=== PATIENT | male | born 1975 | race Caucasian/White ===

== ENCOUNTER 2020-01-31 12:12 | Inpatient (IN) | payer SELFPAY ==
[2020-01-31] MEDS ORDERED: Calcium Carbonate 500 MG ChewTAB PO PRN (14:11)
[2020-01-31] MEDS ORDERED: Ondansetron ODT 4 MG TAB PO PRN (14:11)
[2020-01-31] MEDS ORDERED: Acetaminophen 325 MG TAB PO PRN (14:11)
[2020-01-31] MEDS ORDERED: Ondansetron PF 4 MG/2 ML Vial IVP PRN (14:11)
[2020-01-31] MEDS ORDERED: Sodium Chloride 0.9% 1,000 ML IV SCH (14:15)
[2020-01-31] MEDS ORDERED: cloNIDine 0.1 MG TAB PO PRN (14:17)
[2020-01-31] MEDS ORDERED: Lorazepam 1 MG TAB PO PRN (14:18)
[2020-01-31] MEDS ORDERED: Thiamine 100 MG TAB PO SCH (14:30)
[2020-01-31] MEDS ORDERED: Folic Acid 1 MG TAB PO SCH (14:30)
[2020-01-31] MEDS ORDERED: Multivit, Therapeutic 1 TAB PO SCH (14:30)
[2020-01-31] MEDS: NS 0.9% w/ 20 MEQ KCL 1,000 ML/1,000 ML BAG IV SCH ×2 (16:24→20:14)
[2020-01-31] MEDS: Potassium Chloride 20 MEQ TAB PO SCH (16:24)
--- NOTE | 2020-01-31 17:24 | HP ---
PRIMARY CARE PHYSICIAN: [facility]. CHIEF COMPLAINT: Altered mentation. HISTORY OF PRESENT ILLNESS: The patient is a 44-year-old male with schizophrenia and suicidal attempt in the past, was brought in to [facility] with altered mentation. He was found to have altered mentation behind [employer]. The patient also has a history of polysubstance abuse including methamphetamine. He has been complaining of generalized weakness along with fatigue. No fever, chills, or sick contacts reported. He complains of frequent urination recently. He is currently homeless. He has a history of alcohol abuse as well; however, denies any history of alcohol withdrawals. He reported suicidal ideation without a plan in the emergency room. He also reported that he had dark stools; however, denies any hematemesis. In the emergency room, his workup was consistent with rhabdomyolysis. His urine drug screen was positive for methamphetamine. He received IV fluids and was transferred to this facility for hospital admission. His potassium was 2.9. PAST MEDICAL HISTORY: 1. Polysubstance abuse. 2. Schizophrenia. 3. History of suicidal attempt. 4. Depression and anxiety. 5. Chronic hepatitis C. ALLERGIES: NO KNOWN DRUG ALLERGIES. PAST SURGICAL HISTORY: Reviewed with the patient and none. SOCIAL HISTORY: As discussed above. He smokes up to 2 packs a day. FAMILY HISTORY: Negative for heart disease. REVIEW OF SYSTEMS: The patient denies any recent immobilization, travel, or sick contacts. No chest pain, palpitations, or syncope reported. All other review of systems were reviewed and were found negative. PHYSICAL EXAMINATION: VITAL SIGNS: In the emergency room showed temperature 97.6, respirations of 16, pulse rate of 76 with a blood pressure of 112/72, with O2 saturation 100% on room air. GENERAL: A 44-year-old male, in no apparent distress. Mentation has significantly improved. HEENT: Head, atraumatic and normocephalic. Sclerae anicteric. Dry mucous membrane. No oral lesion. NECK: Supple. No JVD appreciated. No carotid bruit. LUNGS: Clear to auscultation bilaterally. No wheezing, rales, or rhonchi. HEART: S1 and S2 present. Regular rate and rhythm. No rubs or gallops. ABDOMEN: Soft, nontender. Bowel sounds present. EXTREMITIES: No edema or calf tenderness. NEUROLOGIC: Grossly nonfocal. Moves all 4 extremities. Power was 5/5 in all extremities. PSYCHIATRIC: Alert, awake, oriented x3. Normal affect. SKIN: Warm and dry. LYMPH NODES: No palpable lymph nodes in the neck. PERIPHERAL VASCULAR: Radial pulses palpable bilaterally. MUSCULOSKELETAL: No joint swelling tenderness. LABORATORY FINDINGS: CBC showed WBC of 10.1 with hemoglobin 13.3, platelet count of 278. Sodium 135 with potassium 2.9, BUN 22, creatinine 0.91. Total bilirubin 1.7 with AST of 265, ALT of 117, alkaline phosphatase was normal. CK was 10,669. Urine drug screen was positive for amphetamine and methamphetamine. Salicylate, acetaminophen, and alcohol level were negative. Urinalysis was negative for RBC, WBC. Stool for occult blood was positive. IMPRESSION: 1. Toxic metabolic encephalopathy secondary to polysubstance abuse. 2. Rhabdomyolysis secondary to above. 3. Ongoing tobacco abuse. 4. Anxiety, depression, schizophrenia with suicidal ideation. 5. Chronic hepatitis C with abnormal LFTs. 6. Positive Hemoccult stool in the emergency room. 7. Hypokalemia. PLAN: The patient will be monitored on the medical floor. Sitter will be arranged. We will start him on aggressive IV hydration to prevent renal damage. We will replace potassium. We will start him on IV Protonix. Monitor H and H closely. We will type and screen in a.m. We will consult Gastroenterology if there is any concern for GI bleeding. We will monitor for alcohol withdrawal. Recheck CK in a.m. We will check coagulation profile in a.m. We will type and screen as well. Recheck LFTs in a.m. Job ID: [id number]
[2020-01-31] MEDS: Pantoprazole 40 MG VIAL IVP SCH (20:13)
[2020-01-31] MEDS ORDERED: Famotidine 20 MG TAB PO SCH (21:00)
[2020-02-01] MEDS: NS 0.9% w/ 20 MEQ KCL 1,000 ML/1,000 ML BAG IV SCH ×2 (00:41→02:20)
[2020-02-01] MEDS: Sodium Chloride 0.9% 1,000 ML IV SCH ×4 (06:16→21:48)
[2020-02-01 06:40] LABS: #Eosinphils 0.1 thou/uL (0.0-0.7); #Monocytes 0.6 thou/uL (0.11-0.59); #Neutrophils 3.4 thou/uL (1.40-6.50); %Basophils 0.7 % (0.0-1.0); %Eosinophils 1.6 % (0.0-10.0); %Monocytes 9.3 % (0.0-10.0); %Neutrophils 55.4 % (42.0-75.0); Hemoglobin 11.3 g/dL (14.0-18.0); Mean Corpuscular HGB CONC 33.8 g/dL (32.0-36.0); Mean Corpuscular Hemoglobin 33.1 pg (27.0-31.0); Mean Corpuscular Volume 97.9 fL (78.0-98.0); Mean Platelet Volume 7.1 fL (7.4-10.4); Platelet Count 220 thou/uL (130-400); RBC Distribution Width 11.9 % (11.5-14.5); Red Blood Cell (RBC) Count 3.42 mill/uL (4.70-6.10); White Blood Cell (WBC) Count 6.1 thou/uL (4.8-10.8)
[2020-02-01 06:46] LABS: PTT 26.5 sec (22.9-36.1); Prothrombin Time 13.2 sec (12.0-14.7)
[2020-02-01 07:05] LABS: ALT (SGPT) 77 U/L (8-55); AST (SGOT) 161 U/L (5-34); Albumin 2.8 g/dL (3.5-5.0); Alkaline Phosphatase 65 U/L (40-110); Anion Gap 8 mmol/L (10-20); BUN (Urea Nitrogen) 14 mg/dL (8.9-20.6); Bilirubin, Total 0.4 mg/dL (0.2-1.2); Calc. Creatinine Clearance 128 mL/min (70-130); Calcium 7.7 mg/dL (7.8-10.44); Carbon Dioxide 23 mmol/L (22-29); Chloride 114 mmol/L (98-107); Estimated GFR-MDRD Greater than 90; Globulin 2.2 g/dL (2.4-3.5); Glucose 102 mg/dL (70-105); Magnesium 1.7 mg/dL (1.6-2.6); Potassium 3.9 mmol/L (3.5-5.1); Sodium 141 mmol/L (136-145)
[2020-02-01 07:18] LABS: CK (CPK) 6215 U/L (30-200)
[2020-02-01] MEDS: Cyanocobalamin (Vitamin B-12) 1,000 MCG TAB PO SCH (08:23)
[2020-02-01] MEDS: Folic Acid 1 MG TAB PO SCH (08:23)
[2020-02-01] MEDS: Potassium Chloride 20 MEQ TAB PO SCH (08:23)
[2020-02-01] MEDS: Multivit, Therapeutic 1 TAB PO SCH (08:23)
[2020-02-01] MEDS: Pantoprazole 40 MG VIAL IVP SCH ×2 (08:23→20:17)
[2020-02-01] MEDS: Thiamine 100 MG TAB PO SCH (08:23)
[2020-02-01] MEDS ORDERED: Enoxaparin Sodium 40 MG/0.4 ML SYRINGE SC SCH (09:00)
--- NOTE | 2020-02-01 18:24 | PDOC.HOSPP ---
- Subjective Encounter Date: 02/01/20 Encounter Time: : Subjective: Pt seen for followup re: rhabdomyolysis. Denies any complaints. - Objective Vital Signs & Weight: Vital Signs (12 hours) Temp Pulse Resp BP Pulse Ox 02/01/20 15:23 97.9 F 62 16 108/56 L 97 02/01/20 12:00 97.2 F L 65 16 110/62 97 02/01/20 10:00 97 02/01/20 08:00 97 02/01/20 07:29 97.8 F 52 L 16 102/65 97 Weight Weight 165 lb 7 oz I&O: 01/31/20 02/01/20 02/02/20 06:59 06:59 06:59 Intake Total 4620 Output Total 400 Balance 4220 Result Diagrams: 02/01/20 06:11 02/01/20 06:11 Additional Labs: Labs and MARs reviewed by al Hospitalist ROS - Review of Systems Constitutional: denies: fever, chills, sweats, weakness, malaise Respiratory: denies: cough, shortness of breath, SOB with excertion, pleuritic pain, wheezing Cardiovascular: denies: chest pain, palpitations, orthopnea, paroxysmal noc. dyspnea, edema, light headedness Gastrointestinal: denies: nausea, vomiting, abdominal pain, diarrhea, constipation, melena, hematochezia Genitourinary: denies: dysuria, frequency, incontinence, hematuria, retention Musculoskeletal: denies: neck pain, shoulder pain, arm pain, back pain, hand pain, leg pain, foot pain - Medication Medications: Active Medications Generic Name Dose Route Start Last Admin Trade Name Rahul PRN Reason Stop Dose Admin Cyanocobalamin 1,000 mcg 02/01/20 09:00 02/01/20 08:23 Vitamin B-12 PO 1,000 mcg DAILY LORELEI Administration Folic Acid 1 mg 02/01/20 09:00 02/01/20 08:23 Folvite PO 1 mg DAILY LORELEI Administration Sodium Chloride 1,000 mls @ 200 mls/hr 02/01/20 05:30 02/01/20 14:44 Normal Saline 0.9% IV 1,000 mls .Q5H LORELEI Administration Multivitamins 1 tab 02/01/20 09:00 02/01/20 08:23 Theragran PO 1 tab DAILY LORELEI Administration Pantoprazole Sodium 40 mg 01/31/20 21:00 02/01/20 08:23 Protonix IVP 40 mg Q12HR LORELEI Administration Thiamine HCl 100 mg 02/01/20 09:00 02/01/20 08:23 Thiamine PO 100 mg DAILY LORELEI Administration - Exam General Appearance: awake alert Eye: anicteric sclera ENT: normocephalic atraumatic, no oropharyngeal lesions Neck: supple, symmetric, no JVD, no thyromegaly, no lymphadenopathy Heart: RRR, no gallops, no rubs, normal peripheral pulses Respiratory: CTAB, no wheezes, no rales, no ronchi, normal chest expansion Gastrointestinal: soft, non-tender, non-distended, normal bowel sounds Extremities: no cyanosis Musculoskeletal: no muscle wasting Psychiatric: normal affect, normal behavior, oriented to place, oriented to time Hosp A/P (1) Rhabdomyolysis Code(s): M62.82 - RHABDOMYOLYSIS Status: Acute (2) Transaminitis Code(s): R74.0 - NONSPEC ELEV OF LEVELS OF TRANSAMNS & LACTIC ACID DEHYDRGNSE Status: Acute (3) Acute metabolic encephalopathy Code(s): G93.41 - METABOLIC ENCEPHALOPATHY Status: Acute (4) Methamphetamine use Code(s): F15.10 - OTHER STIMULANT ABUSE, UNCOMPLICATED Status: Acute - Plan Continue IV fluids, trend CK. Isolated transaminitis likely due to rhabdomyolysis. Acute metaboilic encephalopathy improving, likely due to methamphetamine use - pt counseled re; cessation of recreational drug use. Sitter due to suicidal ideation; pt will need MHMR when medically cleared.
[2020-02-02] MEDS: Sodium Chloride 0.9% 1,000 ML IV SCH ×4 (00:51→17:14)
[2020-02-02 05:43] LABS: #Eosinphils 0.1 thou/uL (0.0-0.7); #Lymphocytes 2.6 thou/uL (1.20-3.40); #Monocytes 0.6 thou/uL (0.11-0.59); #Neutrophils 3.1 thou/uL (1.40-6.50); %Basophils 0.6 % (0.0-1.0); %Eosinophils 2.1 % (0.0-10.0); %Lymphocytes 39.9 % (21.0-51.0); %Monocytes 9.1 % (0.0-10.0); %Neutrophils 48.3 % (42.0-75.0); Hemoglobin 11.2 g/dL (14.0-18.0); Mean Corpuscular HGB CONC 33.7 g/dL (32.0-36.0); Mean Corpuscular Hemoglobin 33.1 pg (27.0-31.0); Mean Corpuscular Volume 98.4 fL (78.0-98.0); Mean Platelet Volume 6.9 fL (7.4-10.4); Platelet Count 246 thou/uL (130-400); RBC Distribution Width 11.7 % (11.5-14.5); Red Blood Cell (RBC) Count 3.38 mill/uL (4.70-6.10); White Blood Cell (WBC) Count 6.5 thou/uL (4.8-10.8)
[2020-02-02 06:08] LABS: ALT (SGPT) 73 U/L (8-55); AST (SGOT) 122 U/L (5-34); Albumin 2.7 g/dL (3.5-5.0); Alkaline Phosphatase 64 U/L (40-110); Anion Gap 9 mmol/L (10-20); BUN (Urea Nitrogen) 13 mg/dL (8.9-20.6); Bilirubin, Total Less than 0.2 mg/dL (0.2-1.2); Calc. Creatinine Clearance 123 mL/min (70-130); Calcium 7.6 mg/dL (7.8-10.44); Carbon Dioxide 23 mmol/L (22-29); Chloride 111 mmol/L (98-107); Estimated GFR-MDRD Greater than 90; Globulin 2.3 g/dL (2.4-3.5); Glucose 100 mg/dL (70-105); Magnesium 1.6 mg/dL (1.6-2.6); Potassium 3.7 mmol/L (3.5-5.1); Sodium 139 mmol/L (136-145)
[2020-02-02 06:18] LABS: CK (CPK) 4221 U/L (30-200)
[2020-02-02] MEDS: Folic Acid 1 MG TAB PO SCH (08:29)
[2020-02-02] MEDS: Multivit, Therapeutic 1 TAB PO SCH (08:29)
[2020-02-02] MEDS: Thiamine 100 MG TAB PO SCH (08:29)
[2020-02-02] MEDS: Cyanocobalamin (Vitamin B-12) 1,000 MCG TAB PO SCH (08:29)
[2020-02-02] MEDS: Pantoprazole 40 MG VIAL IVP SCH ×2 (08:29→21:04)
--- NOTE | 2020-02-02 18:07 | PDOC.HOSPP ---
- Subjective Encounter Date: 02/02/20 Encounter Time: 08:00 Subjective: Pt seen for followup re: rhabdomyolysis. Pt states he feels better today. - Objective Vital Signs & Weight: Vital Signs (12 hours) Temp Pulse Resp BP BP Pulse Ox 02/02/20 08:00 115/52 L 97 02/02/20 07:30 98.0 F 51 L 16 115/52 L 97 Weight Weight 165 lb 7 oz I&O: 02/01/20 02/02/20 02/03/20 06:59 06:59 06:59 Intake Total 4620 3160 Output Total 400 Balance 4220 3160 Result Diagrams: 02/02/20 05:30 02/02/20 05:30 Additional Labs: Labs and MARs reviewed by md Hospitalist ROS - Review of Systems Constitutional: denies: fever, chills, weakness, malaise Cardiovascular: denies: chest pain, palpitations, orthopnea, paroxysmal noc. dyspnea, edema, light headedness Gastrointestinal: denies: nausea, vomiting, diarrhea, melena, hematochezia - Medication Medications: Active Medications Generic Name Dose Route Start Last Admin Trade Name Freq PRN Reason Stop Dose Admin Acetaminophen 650 mg 01/31/20 14:11 02/02/20 10:46 Tylenol PO 650 mg Q4H PRN Administration Headache/Fever/Mild Pain (1-3) Cyanocobalamin 1,000 mcg 02/01/20 09:00 02/02/20 08:29 Vitamin B-12 PO 1,000 mcg DAILY LORELEI Administration Folic Acid 1 mg 02/01/20 09:00 02/02/20 08:29 Folvite PO 1 mg DAILY LORELEI Administration Sodium Chloride 1,000 mls @ 200 mls/hr 02/01/20 05:30 02/02/20 17:14 Normal Saline 0.9% IV 1,000 mls .Q5H LORELEI Administration Lorazepam 1 mg 01/31/20 14:18 02/02/20 10:46 Ativan PO 1 mg Q4H PRN Administration ASE >=9 Multivitamins 1 tab 02/01/20 09:00 02/02/20 08:29 Theragran PO 1 tab DAILY LORELEI Administration Pantoprazole Sodium 40 mg 01/31/20 21:00 02/02/20 08:29 Protonix IVP 40 mg Q12HR LORELEI Administration Thiamine HCl 100 mg 02/01/20 09:00 02/02/20 08:29 Thiamine PO 100 mg DAILY LORELEI Administration - Exam General Appearance: awake alert Eye: anicteric sclera ENT: moist mucosa Neck: supple Heart: RRR Respiratory: CTAB Gastrointestinal: soft, non-tender Psychiatric: normal affect, normal behavior Hosp A/P (1) Rhabdomyolysis Code(s): M62.82 - RHABDOMYOLYSIS Status: Acute (2) Transaminitis Code(s): R74.0 - NONSPEC ELEV OF LEVELS OF TRANSAMNS & LACTIC ACID DEHYDRGNSE Status: Acute (3) Methamphetamine use Code(s): F15.10 - OTHER STIMULANT ABUSE, UNCOMPLICATED Status: Acute (4) Acute metabolic encephalopathy Code(s): G93.41 - METABOLIC ENCEPHALOPATHY Status: Resolved - Plan Pt clinically improving. CK improving. Isolated transaminitis likely due to rhabdomyolysis, improved. Acute metaboilic encephalopathy resolved, likely due to methamphetamine use. Pt will need MHMR evaluation when medically cleared.
[2020-02-03] MEDS: Sodium Chloride 0.9% 1,000 ML IV SCH ×7 (02:17→21:23)
[2020-02-03 06:18] VITALS: BMI 25.0
[2020-02-03 06:38] LABS: #Eosinphils 0.2 thou/uL (0.0-0.7); #Lymphocytes 1.9 thou/uL (1.20-3.40); #Monocytes 0.7 thou/uL (0.11-0.59); #Neutrophils 5.2 thou/uL (1.40-6.50); %Basophils 0.4 % (0.0-1.0); %Lymphocytes 23.9 % (21.0-51.0); %Monocytes 8.6 % (0.0-10.0); %Neutrophils 65.1 % (42.0-75.0); Hemoglobin 12.2 g/dL (14.0-18.0); Mean Corpuscular HGB CONC 34.5 g/dL (32.0-36.0); Mean Corpuscular Hemoglobin 33.7 pg (27.0-31.0); Mean Corpuscular Volume 97.6 fL (78.0-98.0); Platelet Count 272 thou/uL (130-400); RBC Distribution Width 11.8 % (11.5-14.5); Red Blood Cell (RBC) Count 3.61 mill/uL (4.70-6.10); White Blood Cell (WBC) Count 7.9 thou/uL (4.8-10.8)
[2020-02-03] MEDS: Pantoprazole 40 MG VIAL IVP SCH ×2 (09:07→21:18)
[2020-02-03] MEDS: Folic Acid 1 MG TAB PO SCH (09:12)
[2020-02-03] MEDS: Multivit, Therapeutic 1 TAB PO SCH (09:12)
[2020-02-03] MEDS: Cyanocobalamin (Vitamin B-12) 1,000 MCG TAB PO SCH (09:12)
[2020-02-03] MEDS: Thiamine 100 MG TAB PO SCH (09:12)
--- NOTE | 2020-02-03 17:07 | PDOC.HOSPP ---
- Subjective Encounter Date: 02/03/20 Encounter Time: 10:30 Subjective: Pt seen for followup re: rhabdomyolysis. feels better today. IV was out but patient agreed to restart. - Objective Vital Signs & Weight: Vital Signs (12 hours) Temp Pulse Resp BP Pulse Ox 02/03/20 13:09 98.7 F 60 18 118/74 96 02/03/20 07:34 98.1 F 57 L 18 120/71 97 Weight Weight 165 lb 5.547 oz I&O: 02/02/20 02/03/20 02/04/20 06:59 06:59 06:59 Intake Total 3160 Balance 3160 Result Diagrams: 02/03/20 06:12 02/02/20 05:30 Additional Labs: Labs and MARs reviewed by il Hospitalist ROS - Review of Systems Cardiovascular: denies: chest pain, palpitations, orthopnea, paroxysmal noc. dyspnea, edema, light headedness Musculoskeletal: denies: neck pain, shoulder pain, arm pain, back pain, hand pain, leg pain, foot pain Skin: denies: rash, bruising - Medication Medications: Active Medications Generic Name Dose Route Start Last Admin Trade Name Freq PRN Reason Stop Dose Admin Acetaminophen 650 mg 01/31/20 14:11 02/02/20 10:46 Tylenol PO 650 mg Q4H PRN Administration Headache/Fever/Mild Pain (1-3) Cyanocobalamin 1,000 mcg 02/01/20 09:00 02/03/20 09:12 Vitamin B-12 PO 1,000 mcg DAILY LORELEI Administration Folic Acid 1 mg 02/01/20 09:00 02/03/20 09:12 Folvite PO 1 mg DAILY LORELEI Administration Sodium Chloride 1,000 mls @ 200 mls/hr 02/01/20 05:30 02/03/20 16:18 Normal Saline 0.9% IV 1,000 mls .Q5H LORELEI Administration Lorazepam 1 mg 01/31/20 14:18 02/02/20 10:46 Ativan PO 1 mg Q4H PRN Administration ASE >=9 Multivitamins 1 tab 02/01/20 09:00 02/03/20 09:12 Theragran PO 1 tab DAILY LORELEI Administration Pantoprazole Sodium 40 mg 01/31/20 21:00 02/03/20 09:07 Protonix IVP Not Given Q12HR LORELEI Thiamine HCl 100 mg 02/01/20 09:00 02/03/20 09:12 Thiamine PO 100 mg DAILY LORELEI Administration - Exam General Appearance: awake alert Eye: anicteric sclera ENT: normocephalic atraumatic Neck: supple Heart: no gallops, no rubs, normal peripheral pulses Respiratory: no wheezes, no rales Gastrointestinal: soft, non-tender Extremities: no clubbing Psychiatric: normal affect, normal behavior Hosp A/P (1) Rhabdomyolysis Code(s): M62.82 - RHABDOMYOLYSIS Status: Acute (2) Methamphetamine use Code(s): F15.10 - OTHER STIMULANT ABUSE, UNCOMPLICATED Status: Acute (3) Transaminitis Code(s): R74.0 - NONSPEC ELEV OF LEVELS OF TRANSAMNS & LACTIC ACID DEHYDRGNSE Status: Acute (4) Acute metabolic encephalopathy Code(s): G93.41 - METABOLIC ENCEPHALOPATHY Status: Resolved - Plan CK still improving, under 3000 today. Continue IV fluids, follow creatinine kinase. Pt will need MR evaluation when medically cleared.
[2020-02-04] MEDS: Sodium Chloride 0.9% 1,000 ML IV SCH ×3 (04:57→12:15)
[2020-02-04 05:38] LABS: #Eosinphils 0.2 thou/uL (0.0-0.7); #Lymphocytes 2.6 thou/uL (1.20-3.40); #Monocytes 0.7 thou/uL (0.11-0.59); #Neutrophils 3.4 thou/uL (1.40-6.50); %Basophils 0.6 % (0.0-1.0); %Eosinophils 2.7 % (0.0-10.0); %Lymphocytes 37.2 % (21.0-51.0); %Monocytes 10.4 % (0.0-10.0); %Neutrophils 49.2 % (42.0-75.0); Mean Corpuscular HGB CONC 32.8 g/dL (32.0-36.0); Mean Corpuscular Volume 97.5 fL (78.0-98.0); Mean Platelet Volume 6.8 fL (7.4-10.4); Platelet Count 268 thou/uL (130-400); RBC Distribution Width 11.7 % (11.5-14.5); Red Blood Cell (RBC) Count 3.75 mill/uL (4.70-6.10)
[2020-02-04 07:33] VITALS: BP 118/79; TEMP 98
[2020-02-04] MEDS: Multivit, Therapeutic 1 TAB PO SCH (08:13)
[2020-02-04] MEDS: Thiamine 100 MG TAB PO SCH (08:14)
[2020-02-04] MEDS: Cyanocobalamin (Vitamin B-12) 1,000 MCG TAB PO SCH (08:14)
[2020-02-04] MEDS: Pantoprazole 40 MG VIAL IVP SCH (08:14)
[2020-02-04] MEDS: Folic Acid 1 MG TAB PO SCH (08:14)
[2020-02-04 11:20] LABS: Amphetamine Not Detected (NotDetected); Barbiturates Screen Not Detected (NotDetected); Benzodiazepine Screen Not Detected (NotDetected); Cocaine Metabolite Screen Not Detected (NotDetected); Medtox Control Line Valid? VALID (VALID); Medtox Reader # READER 1; Methadone Not Detected (NotDetected); Methamphetamine Not Detected (NotDetected); Opiate Screen Not Detected (NotDetected); Oxycodone Screen Not Detected (NotDetected); Phencyclidine (PCP) Not Detected (NotDetected); THC/Cannabinoid Screen Not Detected (NotDetected); Tricyclic Screen Not Detected (NotDetected)
--- NOTE | 2020-02-05 04:16 | DIS ---
DATE OF ADMISSION: 01/31/2020 DATE OF DISCHARGE: 02/04/2020 PRIMARY CARE PROVIDER: Unknown. DISCHARGE DIAGNOSES: 1. Rhabdomyolysis. 2. Methamphetamine use. 3. Transaminitis. 4. Acute metabolic encephalopathy, likely related to methamphetamine use. CONDITION OF PATIENT ON THE DAY OF DISCHARGE: Stable. I assessed Mr. Gray on the day of discharge. He denies any chest pain or shortness of breath. Vital signs are stable. S1 and S2 are heard, regular. Lungs are clear to auscultation bilaterally. HOSPITAL COURSE: Mr. Gray is a pleasant 44-year-old gentleman, who was admitted to [facility] for rhabdomyolysis and acute metabolic encephalopathy on January 31, 2020. Please refer to Dr. Vera's history and physical note dated January 31, 2020 for further details. He improved with intravenous fluids. Acute metabolic encephalopathy, resolved. It was most likely secondary to methamphetamine use. Transaminitis also improved, it was isolated transaminitis and most likely secondary to rhabdomyolysis. He was evaluated by [facility] because he expressed suicidal ideation. He has been cleared for discharge. At the time of admission, urine drug screen was positive for amphetamines and methamphetamines. Followup drug screen done on February 04, 2020 did not show these drugs. POST ACUTE CARE FOLLOWUP: The patient is advised to follow up with the primary care provider in 3 days time. DIET: Regular. ACTIVITY: No restrictions. DISCHARGE DESTINATION: Home. TOTAL AMOUNT OF TIME SPENT COORDINATING THIS DISCHARGE: 31 minutes. Job ID: [id number]
== END 2020-02-04 15:15 | disposition home or self-care (01) | DRG 917 ==
LOC: T4-A 14:17
PROVIDERS: ADMIT Internal Medicine; ATTEND Internal Medicine
DX: T43.621A Poisoning by amphetamines, accidental (unintentional), initial encounter (principal); G92 Toxic encephalopathy; M62.82 Rhabdomyolysis; F15.10 Other stimulant abuse, uncomplicated; F20.9 Schizophrenia, unspecified; F41.9 Anxiety disorder, unspecified; F32.9 Major depressive disorder, single episode, unspecified; B18.2 Chronic viral hepatitis C; E87.6 Hypokalemia
CPT/HCPCS: 36415; 80053; 80306; 82550; 83735; 85025; 85610; 85730; 86850; 86900; 86901; C9113; J3480

== ENCOUNTER 2020-02-16 20:36 | Emergency (ER) | payer SELFPAY ==
[~2020-02-16 20:36] MED LIST: Iopamidol-370 76% 500 ML 1 ML ONE
[2020-02-16] MEDS ORDERED: Ondansetron PF 4 MG/2 ML Vial ONE (21:02)
[2020-02-16 21:19] LABS: #Basophils 0.1 thou/uL (0.0-0.2); #Eosinphils 0.1 thou/uL (0.0-0.7); #Lymphocytes 2.7 thou/uL (1.20-3.40); #Monocytes 0.5 thou/uL (0.11-0.59); #Neutrophils 3.3 thou/uL (1.40-6.50); %Basophils 0.8 % (0.0-1.0); %Eosinophils 1.3 % (0.0-10.0); %Lymphocytes 40.7 % (21.0-51.0); %Monocytes 8.1 % (0.0-10.0); %Neutrophils 49.1 % (42.0-75.0); Hemoglobin 14.6 g/dL (14.0-18.0); Mean Corpuscular HGB CONC 34.2 g/dL (32.0-36.0); Mean Corpuscular Hemoglobin 33.2 pg (27.0-31.0); Mean Corpuscular Volume 97.1 fL (78.0-98.0); Mean Platelet Volume 6.6 fL (7.4-10.4); Platelet Count 316 thou/uL (130-400); RBC Distribution Width 12.1 % (11.5-14.5); Red Blood Cell (RBC) Count 4.39 mill/uL (4.70-6.10); White Blood Cell (WBC) Count 6.7 thou/uL (4.8-10.8)
--- NOTE | 2020-02-16 21:24 | CT ---
CT OF THE ABDOMEN AND PELVIS WITH IV CONTRAST INDICATION: Nausea and abdominal pain COMPARISON: None FINDINGS: ABDOMEN: Lung bases: Clear Liver: No focal lesion. Gallbladder: Normal appearing. Pancreas: Normal. Adrenal glands: Normal. Spleen: Normal. Kidneys and ureters: Normal. No hydronephrosis. Vasculature: Normal. Lymph nodes:No lymphadenopathy. Free fluid in abdomen:No free fluid is evident. PELVIS: Small and large bowel: Normal Appendix:Not definitely visualized; however, no secondary signs for appendicitis are present. Bladder: Normal. Rectal and perirectal soft tissues:Normal. Reproductive structures: Prostate is enlarged measuring 5.7 cm. Free fluid in pelvis: No free fluid is evident. Lymphadenopathy pelvis: No lymphadenopathy is evident. Osseous structures: No acute osseous abnormality. No destructive osteolytic or osteoblastic lesion i s identified. Soft tissues:Normal. IMPRESSION: 1. No acute abnormality.
[2020-02-16 21:38] LABS: ALT (SGPT) 36 U/L (8-55); AST (SGOT) 22 U/L (5-34); Albumin 3.8 g/dL (3.5-5.0); Alkaline Phosphatase 80 U/L (40-110); Anion Gap 11 mmol/L (10-20); BUN (Urea Nitrogen) 17 mg/dL (8.9-20.6); Bilirubin, Total 0.2 mg/dL (0.2-1.2); Calc. Creatinine Clearance 0 mL/min (70-130); Calcium 8.9 mg/dL (7.8-10.44); Carbon Dioxide 25 mmol/L (22-29); Chloride 108 mmol/L (98-107); Estimated GFR-MDRD Greater than 90; Glucose 118 mg/dL (70-105); Lipase 70 U/L (8-78); Potassium 3.9 mmol/L (3.5-5.1); Protein, Total 6.8 g/dL (6.0-8.3); Sodium 140 mmol/L (136-145)
[2020-02-16 21:59] LABS: Bilirubin Negative (Negative); Blood, Urine Negative (Negative); Clarity Clear (Clear); Glucose, Urine (Dipstick) Normal (Negative); Leukocyte Negative Leu/uL (Negative); Nitrite Negative (Negative); Protein, Urine (Dipstick) Negative (Neg-Trace); Urobilinogen Normal mg/dL (Less than 2)
== END 2020-02-17 00:20 | disposition home or self-care (01) ==
LOC: ERS 20:36
DX: R10.31 Right lower quadrant pain (principal); F20.9 Schizophrenia, unspecified; F17.210 Nicotine dependence, cigarettes, uncomplicated; F32.9 Major depressive disorder, single episode, unspecified
CPT/HCPCS: 36415; 74177; 80053; 81003; 83690; 85025; 96361; 96374; J2405; Q9967

== ENCOUNTER 2020-02-19 18:42 | Emergency (ER) | payer SELFPAY ==
[2020-02-19 19:55] LABS: #Eosinphils 0.1 thou/uL (0.0-0.7); #Lymphocytes 2.4 thou/uL (1.20-3.40); #Monocytes 0.6 thou/uL (0.11-0.59); %Basophils 0.6 % (0.0-1.0); %Eosinophils 1.2 % (0.0-10.0); %Lymphocytes 29.9 % (21.0-51.0); %Monocytes 7.4 % (0.0-10.0); Hemoglobin 15.8 g/dL (14.0-18.0); Mean Corpuscular HGB CONC 34.6 g/dL (32.0-36.0); Mean Corpuscular Hemoglobin 33.5 pg (27.0-31.0); Mean Corpuscular Volume 96.9 fL (78.0-98.0); Mean Platelet Volume 6.6 fL (7.4-10.4); Platelet Count 313 thou/uL (130-400); RBC Distribution Width 11.9 % (11.5-14.5); Red Blood Cell (RBC) Count 4.71 mill/uL (4.70-6.10); White Blood Cell (WBC) Count 8.1 thou/uL (4.8-10.8)
[2020-02-19 20:02] LABS: Bilirubin Negative (Negative); Blood, Urine Negative (Negative); Clarity Clear (Clear); Glucose, Urine (Dipstick) Normal (Negative); Leukocyte Negative Leu/uL (Negative); Nitrite Negative (Negative); Protein, Urine (Dipstick) 20 mg/dL (Neg-Trace); Urobilinogen Normal mg/dL (Less than 2)
[2020-02-19 20:11] LABS: Amphetamine Not Detected (NotDetected); Barbiturates Screen Not Detected (NotDetected); Benzodiazepine Screen Not Detected (NotDetected); Cocaine Metabolite Screen Not Detected (NotDetected); Medtox Control Line Valid? VALID (VALID); Medtox Reader # READER 1; Methadone Not Detected (NotDetected); Methamphetamine Not Detected (NotDetected); Opiate Screen Not Detected (NotDetected); Oxycodone Screen Not Detected (NotDetected); Phencyclidine (PCP) Not Detected (NotDetected); THC/Cannabinoid Screen Not Detected (NotDetected); Tricyclic Screen Not Detected (NotDetected)
[2020-02-19 20:13] LABS: Acetaminophen Less than 6.0 mcg/mL (10.0-30.0); Alcohol Less than 10 mg/dL (Less than 10); CK (CPK) 107 U/L (30-200); Salicylate Less than 8.0 mg/dL (15.0-30.0)
[2020-02-19 20:15] LABS: ALT (SGPT) 39 U/L (8-55); AST (SGOT) 21 U/L (5-34); Albumin 4.4 g/dL (3.5-5.0); Alkaline Phosphatase 89 U/L (40-110); Anion Gap 15 mmol/L (10-20); BUN (Urea Nitrogen) 16 mg/dL (8.9-20.6); Bilirubin, Total 0.2 mg/dL (0.2-1.2); Calc. Creatinine Clearance 0 mL/min (70-130); Calcium 10.1 mg/dL (7.8-10.44); Carbon Dioxide 22 mmol/L (22-29); Chloride 105 mmol/L (98-107); Estimated GFR-MDRD 81; Globulin 3.1 g/dL (2.4-3.5); Glucose 110 mg/dL (70-105); Potassium 4.1 mmol/L (3.5-5.1); Protein, Total 7.5 g/dL (6.0-8.3); Sodium 138 mmol/L (136-145)
[2020-02-19] MEDS ORDERED: Acetaminophen 500 MG TAB ONE (22:42)
== END 2020-02-20 03:08 ==
LOC: ERS 18:42
DX: R45.851 Suicidal ideations (principal); R44.0 Auditory hallucinations; F32.9 Major depressive disorder, single episode, unspecified; F17.210 Nicotine dependence, cigarettes, uncomplicated
CPT/HCPCS: 36415; 80053; 80306; 80307; 81003; 82550; 85025; 93005

== ENCOUNTER 2020-02-28 22:58 | Emergency (ER) | payer SELFPAY ==
[~2020-02-28 22:58] MED LIST changes: -Iopamidol-370 76% 500 ML 1 ML ONE; +risperiDONE 1 MG TAB ONE
== END 2020-02-28 23:09 | disposition home or self-care (01) ==
LOC: ERS 22:58
DX: J02.9 Acute pharyngitis, unspecified (principal); F32.9 Major depressive disorder, single episode, unspecified; F20.9 Schizophrenia, unspecified; F17.210 Nicotine dependence, cigarettes, uncomplicated; Z79.899 Other long term (current) drug therapy
CPT/HCPCS: 99283